=== PATIENT | male | born 1970 | race Caucasian/White ===

== ENCOUNTER → 2019-06-28 | Outpatient (CLI) | payer OTHER | LOC: LAB 07:22 → LAB SHORT 07:22 | DX: L30.8 Other specified dermatitis (principal) | CPT/HCPCS: 88312 ==

== ENCOUNTER → 2020-12-30 | Outpatient (CLI) | payer OTHER | LOC: LAB SHORT 07:08 → PLD 07:08 | DX: L30.8 Other specified dermatitis (principal) | CPT/HCPCS: 88312 ==

== ENCOUNTER 2025-01-29 21:31 | Emergency (ER) | payer OTHER ==
[~2025-01-29] VITALS: Ht 175.3 cm; Wt 145.2 kg
[2025-01-29 21:38] VITALS: BP 130/79
== END 2025-01-29 23:01 | disposition home or self-care (01) ==
LOC: ER 21:31
DX: S01.511A Laceration without foreign body of lip, initial encounter (principal); W18.40XA Slipping, tripping and stumbling without falling, unspecified, initial encounter
CPT/HCPCS: 12013; 99282-25